=== PATIENT | female | born 1995 | race Caucasian/White ===

== ENCOUNTER 2025-04-05 14:59 | Emergency (ER) | payer BC ==
[~2025-04-05] VITALS: Ht 154.9 cm; Wt 78.9 kg
[2025-04-05 17:49] LABS: PLATELET COUNT (AUTO) 356 K/uL (150-450); RED BLOOD CELL COUNT(AUTO) 4.48 MIL/uL (4.0-5.2); RED CELL DISTRIBUTION WIDTH 12.3 % (11.5-15.0); WHITE BLOOD COUNT (AUTO) 7.4 K/uL (4.3-11.0)
[2025-04-05 18:01] LABS: ASPARTATE AMINOTRANSFERASE 74 U/L (15-37); CALCIUM, SERUM 9.2 mg/dL (8.5-10.1); CREATININE 0.7 mg/dL (0.6-1.3); SODIUM SERUM 141 mmol/L (136-145); TOTAL PROTEIN, SERUM 8.0 g/dL (6.4-8.2); UREA NITROGEN, BLOOD 12 mg/dL (7-18)
[2025-04-05 18:35] LABS: APPEARANCE,URINE CLEAR (CLEAR); BLOOD, URINE NEGATIVE Ery/uL (NEGATIVE); LEUKOCYTE ESTERASE ,URINE 1+ (NEGATIVE); NITRITE, URINE NEGATIVE (NEGATIVE); UGLUCOSE NEGATIVE (NEGATIVE)
[2025-04-05 18:37] LABS: ADD URINE CULTURE YES; PREGNANCY TEST URINE QUAL NEGATIVE (NEGATIVE); SQUAMOUS EPITHELIAL CELL,UR Few /HPF (None Seen)
[2025-04-05] MEDS ORDERED: CEPHALEXIN MONOHYDRATE 500 MG CAPSULE PO ONE (20:42)
[2025-04-05] MEDS: CEPHALEXIN MONOHYDRATE 500 MG CAPSULE PO ONE (20:44)
[2025-04-05 21:02] VITALS: BP 133/73; TEMP 98.3; O2SAT 98
[2025-04-05] MEDS ORDERED: CEPH500C2 PO (21:05)
== END 2025-04-05 21:03 | disposition home or self-care (01) ==
LOC: ER 15:08
DX: N39.0 Urinary tract infection, site not specified (principal); R25.3 Fasciculation; R06.02 Shortness of breath
CPT/HCPCS: 36415; 70450-TC; 80048-TC; 80076-TC; 81001; 83735-TC; 84484-TC; 84703-TC; 85025-TC; 87086-TC